=== PATIENT | male | born 1970 | race Caucasian/White ===

== ENCOUNTER 2017-12-20 16:50 | Emergency (ER) | payer OTHER, BC ==
[2017-12-20 17:07] VITALS: BP 137/86
--- NOTE | 2017-12-20 17:47 | ER Document Report ---
ED Neck/Back Problem - General Chief Complaint: Back Pain Stated Complaint: BACK PAIN Time Seen by Provider: 12/20/17 17:29 Mode of Arrival: Ambulatory Information source: Patient Notes: 47-year-old male presents to ED for complaint of back pain. He states that at work today he was lifting a 5 gallon cooler of water walking across the floor. He states he had stabbing pain in his lower back he had decided down right away due to the amount of pain. He states after he waited a few minutes he was able to pick the cool wrap and carried across the floor but then the pain came back worse. He states that his job sent him home to follow-up with a doctor and get some for his pain. He states he went to several very urgent cares and they would not take his insurance so he came to the emergency room. He states when he had pain like this before he went to the emergency room and they gave him Toradol and morphine and nothing helped him until they gave him some Robaxin. He states that ibuprofen and Toradol is never helped when he had these pains only thing has helped his Robaxin. TRAVEL OUTSIDE OF THE [place] IN LAST 30 DAYS: No - HPI Patient complains to provider of: Upper back, Lower back Onset: This afternoon Where: Work Onset: Sudden Timing: Still present Quality of pain: Sharp, Stabbing Severity: Moderate Pain Level: 4 Context: Lifting Recent injury: Yes Associated symptoms: Lower back pain, Upper back pain Exacerbated by: Movement of trunk, Sitting position Relieved by: Other - Wrist states when he had this in the past Robaxin helped Similar symptoms previously: Yes Recently seen / treated by doctor: No - Related Data Allergies/Adverse Reactions: No Known Allergies Allergy (Unverified 12/20/17 16:58) Past Medical History - General Information source: Patient - Social History Smoking Status: Former Smoker Cigarette use (# per day): Yes - Vapor cigarettes only now Chew tobacco use (# tins/day): No Frequency of alcohol use: Social - Weekly Drug Abuse: None 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 [place] Lives with: Family Family History: Reviewed & Not Pertinent Patient has suicidal ideation: No Patient has homicidal ideation: No - Past Medical History Cardiac Medical History: Reports: None Pulmonary Medical History: Reports: None EENT Medical History: Reports: None Neurological Medical History: Reports: None Endocrine Medical History: Reports: None Renal/ Medical History: Reports: None Malignancy Medical History: Reports None GI Medical History: Reports: None Musculoskeletal Medical History: Reports Hx Musculoskeletal Deformity, Reports Hx Musculoskeletal Trauma Skin Medical History: Reports None Psychiatric Medical History: Reports: None Traumatic Medical History: Reports: None Infectious Medical History: Reports: None Past Surgical History: Reports: Hx Orthopedic Surgery - Left shoulder 2 Review of Systems - Review of Systems Constitutional: No symptoms reported EENT: No symptoms reported Cardiovascular: No symptoms reported Respiratory: No symptoms reported Gastrointestinal: No symptoms reported Genitourinary: No symptoms reported Male Genitourinary: No symptoms reported Musculoskeletal: Back pain, Muscle pain, Muscle stiffness Skin: No symptoms reported Hematologic/Lymphatic: No symptoms reported Neurological/Psychological: No symptoms reported -: Yes All other systems reviewed and negative Physical Exam - Vital signs Vitals: Temp Pulse Resp BP Pulse Ox 98.5 F 78 16 137/86 H 97 12/20/17 17:06 12/20/17 17:06 12/20/17 17:06 12/20/17 17:06 12/20/17 17:06 Interpretation: Normal - General General appearance: Appears well, Alert - HEENT Head: Normocephalic, Atraumatic Eyes: Normal Pupils: PERRL - Respiratory Respiratory status: No respiratory distress Chest status: Nontender Breath sounds: Normal Chest palpation: Normal - Cardiovascular Rhythm: Regular Heart sounds: Normal auscultation Murmur: No - Abdominal Inspection: Normal Distension: No distension Bowel sounds: Normal Tenderness: Nontender Organomegaly: No organomegaly - Back Back: Normal, Tender - Upper and lower back bilateral tenderness to the muscular area no tenderness to the vertebrae appears pain with range of motion. No: Deformity/step-off, CVA tenderness, Vertebra tenderness, Scars, Scoliosis , Wounds Notes: No signs or symptoms of cauda equina, no loss of control of bowel bladder, no saddle anesthesia, no numbness decrease control of lower extremities. - Extremities General upper extremity: Normal inspection, Nontender, Normal color, Normal ROM , Normal temperature General lower extremity: Normal inspection, Nontender, Normal color, Normal ROM , Normal temperature, Normal weight bearing. No: Levy's sign - Neurological Neuro grossly intact: Yes Cognition: Normal Orientation: AAOx4 [place] Coma Scale Eye Opening: Spontaneous [place] Coma Scale Verbal: Oriented [place] Coma Scale Motor: Obeys Commands [place] Coma Scale Total: 15 Speech: Normal Motor strength normal: LUE, RUE, LLE, RLE Sensory: Normal - Psychological Associated symptoms: Normal affect, Normal mood - Skin Skin Temperature: Warm Skin Moisture: Dry Skin Color: Normal Course - Re-evaluation Re-evalutation: 12/20/17 17:53 Patient states he has had similar pain in the past and Tylenol Motrin or Toradol will not help his pain it has not helped in the past. He states the only thing that will help his pain is Robaxin. He was written a prescription for Robaxin, given exercises, given instructions on warm packs and cold packs, and instructed to follow-up with his Worker's Comp. doctor and his primary care doctor. Patient verbalized understanding and agreement with treatment plan. - Vital Signs Vital signs: Temp Pulse Resp BP Pulse Ox 98.5 F 78 16 137/86 H 97 12/20/17 17:06 12/20/17 17:06 12/20/17 17:06 12/20/17 17:06 12/20/17 17:06 Discharge - Discharge Clinical Impression: Upper back pain Low back pain Qualifiers: Chronicity: acute Back pain laterality: bilateral Sciatica presence: without sciatica Qualified Code(s): M54.5 - Low back pain Condition: Stable Disposition: HOME, SELF-CARE Additional Instructions: MUSCLE STRAIN: You have strained a muscle -- torn the fibers within the muscle. This often occurs with strenuous exertion, or during an injury that suddenly stretches the muscle. The seriousness of a strain varies. Some strains heal within days, others cause problems for months. X-rays cannot show a muscle strain. X-rays are taken only if symptoms suggest that a fracture could be present. The usual treatment of a muscle strain is rest and ice packs. Sometimes, a sling, splint, or crutches may be necessary to rest the muscle. The muscle can be used again once pain subsides. Severe strains require a special exercise and stretching program to prevent permanent stiffness and disability. Your doctor will advise you if this will be necessary. Call the doctor immediately if pain or swelling becomes severe, or if numbness or discoloration develop. LOW BACK PAIN: Three out of every four people will have an episode of disabling back pain during their lifetime. Most commonly the pain is due to straining of the muscles and ligaments in the low back. Usual treatment includes: (1) Rest on a firm surface. Avoid lying on your stomach. (2) Ice pack the painful area. After a few days, gentle heat may be used intermittently to relax the area, or ice packs can be continued. (3) Medication may be needed -- muscle relaxers and antiinflammatory medicines are commonly used. (4) As the back improves, exercises are prescribed to strengthen the back and abdominal muscles. Your doctor will advise you on the proper care for your back at each stage in your recovery. You may be better in a few days -- or healing may take several weeks. If new symptoms of a "herniated disc" (radiation of pain, numbness, or tingling down the back of the leg or weakness in the leg) occur, you should be re-examined. Further testing may be necessary. ICE PACKS: Apply ice packs frequently against the painful area. Many different schedules are recommended, such as "20 minutes on, 20 minutes off" or "one hour ice, two hours rest." If you need to work, you may need to go longer between ice treatments. You should plan to have the area ice packed AT LEAST one fourth of the time. The ice should be applied over the wrap, tape, or splint, or over a layer of cloth -- not directly against the skin. Some ice bags have a built-in cloth and can be put directly on the skin. WARM PACKS: After approximately two days, apply gentle heat (such as a heating pad or hot water bottle) for about 20 to 30 minutes about every two hours -- at least four times daily. Warmth and elevation will help you make a more rapid recovery , and will ease the pain considerably. Do not use HOT heat, and never apply heat for longer than 30 minutes. The continuous heat can invisibly damage skin and muscles -- even when no burn is seen on the surface. Damaged muscles can make you MORE sore. MUSCLE RELAXERS: Muscle relaxing medications are usually prescribed for acute muscle spasm or injury to the neck and back. They are often combined with antiinflammatory pain medication for increased relief. You may stop the muscle relaxer when the pain and stiffness have improved. Start the medication again if spasms recur. Muscle relaxers may cause drowsiness, especially with the first dose. Do not operate machinery or drive while under the effects of the medication. Most muscle relaxers last up to 24 hours. Do not combine the medication with alcohol. Stretching Exercises for the Back The physician has recommended that you begin stretching exercises for your back. These are often used even while the back is painful. However, you should notify the physician if the activities seem to increase your pain. PELVIC TILT: Lie flat on your back with knees bent. Tighten your stomach and buttock muscles so it flattens your lower back against the floor. Hold 10 seconds. Repeat 10 times, twice daily. KNEE RAISE: Lying on the back with knees bent, raise one knee to your chest, then the other. Hold both knees against the chest 10 seconds, then lower one knee at a time. Repeat 10 times, twice daily. PARTIAL TRUNK RAISE: Lie face down, arms at your sides. Keeping your waist on the floor, use your arms raise your chest up. Support yourself on your elbows for 30 seconds. Repeat twice daily, increasing the time to two minutes as you recover. FOLLOW-UP CARE: If you have been referred to a physician for follow-up care, call the physician s office for an appointment as you were instructed or within the next two days. If you experience worsening or a significant change in your symptoms, notify the physician immediately or return to the Emergency Department at any time for re-evaluation. Please call your work and follow-up with your Worker's Comp. doctor promptly. Prescriptions: Methocarbamol [Robaxin 500 mg Tablet] 500 mg PO BID PRN #20 tablet PRN Reason: For Back Pain Forms: Elevated Blood Pressure, Return to Work
== END 2017-12-20 17:56 | disposition home or self-care (01) ==
LOC: ER 16:50
DX: M54.5 Low back pain (principal); M54.6 Pain in thoracic spine; M54.9 Dorsalgia, unspecified; Z79.899 Other long term (current) drug therapy; Z87.891 Personal history of nicotine dependence
CPT/HCPCS: 99283

== ENCOUNTER 2019-08-19 19:21 | Emergency (ER) | payer BC, OTHER ==
--- NOTE | 2019-08-19 20:17 | ER Document Report ---
ED Medical Screen (RME) - General Chief Complaint: Laceration Stated Complaint: LEFT HAND LACERATION Time Seen by Provider: 08/19/19 20:15 Mode of Arrival: Ambulatory Information source: Patient Notes: 49-year-old male presented to ED for laceration to the left hand between the thumb and second finger. He states he was trying to cut some zip ties with a knife when the knife slipped and cut his hand. He states his last tetanus was about 2 months ago. He states he tried to put new skin on it but it keeps opening up and bleeding so he will will need some sutures. He is alert oriented respirations regular nonlabored speaking in full sentences. He states the knife had been used but it was not grossly contaminated. I have greeted and performed a rapid initial assessment of this patient. A comprehensive ED assessment and evaluation of the patient, analysis of test results and completion of medical decision making process will be conducted by an additional ED providers. TRAVEL OUTSIDE OF THE [place] IN LAST 30 DAYS: No - Related Data Allergies/Adverse Reactions: No Known Allergies Allergy (Unverified 12/20/17 16:58) Past Medical History Renal/ Medical History: Denies: Hx Peritoneal Dialysis Musculoskeltal Medical History: Reports Hx Musculoskeletal Deformity, Reports Hx Musculoskeletal Trauma Past Surgical History: Reports: Hx Orthopedic Surgery - Left shoulder 2 Physical Exam - Vital signs Vitals: Temp Pulse Resp BP Pulse Ox 98.5 F 94 16 150/94 H 97 08/19/19 19:27 08/19/19 19:27 08/19/19 19:27 08/19/19 19:27 08/19/19 19:27 Course - Vital Signs Vital signs: Temp Pulse Resp BP Pulse Ox 98.5 F 94 16 150/94 H 97 08/19/19 19:27 08/19/19 19:27 08/19/19 19:27 08/19/19 19:27 08/19/19 19:27
--- NOTE | 2019-08-19 20:45 | ER Document Report ---
ED Wound - General Chief Complaint: Laceration Stated Complaint: LEFT HAND LACERATION Time Seen by Provider: 08/19/19 20:15 Primary Care Provider: BRENDAN ARMSTRONG PA-C [Primary Care Provider] - Follow up as needed Mode of Arrival: Ambulatory Notes: 49-year-old male no previous medical problems presents to the emergency room with a laceration, puncture wound to his left hand between his thumb and index finger. Patient states he was trying to cut zip ties with a knife when it slipped cutting his hand. Tetanus is up-to-date. Patient is right-handed. Bleeding is controlled. Patient states he did try to apply some. Liquid Band- Aid without relief. States he did clean it with water and alcohol. TRAVEL OUTSIDE OF THE [place] IN LAST 30 DAYS: No - HPI Patient complains to provider of: Laceration, Puncture wound - Related Data Allergies/Adverse Reactions: No Known Allergies Allergy (Unverified 12/20/17 16:58) Past Medical History - General Information source: Patient - Social History Smoking Status: Never Smoker Frequency of alcohol use: Occasional Drug Abuse: None Lives with: Family Family History: Reviewed & Not Pertinent Patient has homicidal ideation: No Renal/ Medical History: Denies: Hx Peritoneal Dialysis Musculoskeletal Medical History: Reports Hx Musculoskeletal Deformity, Reports Hx Musculoskeletal Trauma Past Surgical History: Reports: Hx Orthopedic Surgery - Left shoulder 2 - Immunizations Hx Diphtheria, Pertussis, Tetanus Vaccination: Yes Review of Systems - Review of Systems Constitutional: No symptoms reported EENT: No symptoms reported Cardiovascular: No symptoms reported Respiratory: No symptoms reported Musculoskeletal: Muscle pain Skin: Other - Laceration/puncture wound Neurological/Psychological: No symptoms reported -: Yes All other systems reviewed and negative Physical Exam - Vital signs Vitals: Temp Pulse Resp BP Pulse Ox 98.5 F 94 16 150/94 H 97 08/19/19 19:27 08/19/19 19:27 08/19/19 19:27 08/19/19 19:27 08/19/19 19:27 - General General appearance: Appears well, Alert In distress: Mild - HEENT Head: Normocephalic, Atraumatic Eyes: Normal Pupils: PERRL - Respiratory Respiratory status: No respiratory distress Chest status: Nontender Breath sounds: Normal Chest palpation: Normal - Cardiovascular Rhythm: Regular Heart sounds: Normal auscultation Murmur: No - Extremities Hand: Tender, Laceration - 1 cm laceration/puncture wound noted to the left hand between the thumb and index finger. Bleeding is controlled. - Neurological Neuro grossly intact: Yes Cognition: Normal Orientation: AAOx4 [place] Coma Scale Eye Opening: Spontaneous [place] Coma Scale Verbal: Oriented [place] Coma Scale Motor: Obeys Commands [place] Coma Scale Total: 15 Speech: Normal Motor strength normal: LUE, RUE, LLE, RLE Sensory: Normal - Skin Skin Temperature: Warm Skin Moisture: Dry Skin irregularity: Laceration - 1 cm laceration noted to the web between the left thumb and index finger. Bleeding is controlled. Course - Re-evaluation Re-evalutation: 08/19/19 21:36 Wound was cleansed and sutured as documented. Dressing applied by nursing staff as documented. Patient was counseled on proper wound care. Sutures out 8 to 10 days. Patient was given strict return to emergency room guidelines. Return for any new or worsening symptoms. All questions were answered. Patient verbalized understanding and agrees with plan of care. - Vital Signs Vital signs: Temp Pulse Resp BP Pulse Ox 98.5 F 94 16 150/94 H 97 08/19/19 20:11 08/19/19 19:27 08/19/19 19:27 08/19/19 19:27 08/19/19 19:27 Procedures - Laceration/Wound Repair Left Hand Time completed: 21:34 Wound length (cm): 1 Wound's Depth, Shape: Linear, Other - Puncture wound Laceration pre-procedure: Sterile PPE donned, Sterile drapes applied, Shur-Clens applied Anesthetic type: 1% Lidocaine Volume Anesthetic (mLs): 1 Wound explored: Clean, No foreign body removed Irrigated w/ Saline (mLs): 20 Wound Repaired With: Sutures Suture Size/Type: 5:0, Ethilon Number of Sutures: 3 Layer Closure?: No Post-procedure wound care: Other - Dressing applied Discharge - Discharge Clinical Impression: Laceration of left hand Qualifiers: Encounter type: initial encounter Foreign body presence: without foreign body Qualified Code(s): S61.412A - Laceration without foreign body of left hand, initial encounter Condition: Stable Disposition: HOME, SELF-CARE Instructions: Laceration Care ([facility]) Additional Instructions: You can remove the dressing in 24 hours. Keep wound clean and dry. Do not get it wet. If wound gets wet pat it dry. Sutures out 8 to 10 days. Return for any new or worsening symptoms. Referrals: BRENDAN ARMSTRONG PA-C [Primary Care Provider] - Follow up in 1 week (8 to 10 days for suture removal)
[2019-08-19] MEDS ORDERED: LIDOCAINE 1% INJ-PF (10 MG/ML) 30 ML SDV INJ ONE (21:07)
[2019-08-19 21:50] VITALS: BP 157/93
== END 2019-08-19 21:48 | disposition home or self-care (01) ==
LOC: ER 19:21
PROC: 0HQGXZZ Repair Left Hand Skin, External Approach (ICD-10-PCS; principal; 2019-08-19)
DX: S61.412A Laceration without foreign body of left hand, initial encounter (principal); W26.0XXA Contact with knife, initial encounter
CPT/HCPCS: 99282